=== PATIENT | male | born 1995 | race American Indian/Alaskan Native ===

== ENCOUNTER 2020-02-23 09:39 | Emergency (ER) | payer SELFPAY ==
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
[2020-02-23] MEDS ORDERED: oxyCODONE /ACETAMINOPHEN 5-325MG TAB PO ONE (15:33)
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
[2020-02-23 16:05] VITALS: BP 134/97
== END 2020-02-23 16:08 | disposition home or self-care (01) ==
LOC: ED 09:39
DX: S81.832A Puncture wound without foreign body, left lower leg, initial encounter (principal); F17.200 Nicotine dependence, unspecified, uncomplicated; W34.00XA Accidental discharge from unspecified firearms or gun, initial encounter; Y93.89 Activity, other specified; Y92.89 Other specified places as the place of occurrence of the external cause; Y99.8 Other external cause status

== ENCOUNTER 2020-02-25 23:38 | Emergency (ER) | payer SELFPAY | END 2020-02-26 00:28 | disposition left against medical advice (07) | LOC: ED 23:38 | DX: M79.606 Pain in leg, unspecified (principal); Z53.21 Procedure and treatment not carried out due to patient leaving prior to being seen by health care provider ==